=== PATIENT | male | born 1955 | race African-American/Black ===

== ENCOUNTER 2019-02-12 11:36 | Inpatient (IN) | payer OTHER ==
[2019-02-12 13:05] VITALS: BMI 32.1
--- NOTE | 2019-02-12 13:43 | HP ---
CIWA Score - Admission Criteria OASAS Guidelines: Admission for Medically Managed Detox: Requires at least one of the followin. CIWA greater than 12 2. Seizures within the past 24 hours 3. Delirium tremens within the past 24 hours 4. Hallucinations within the past 24 hours 5. Acute intervention needed for co occurring medical disorder 6. Acute intervention needed for co occurring psychiatric disorder 7. Severe withdrawal that cannot be handled at a lower level of care (continued vomiting, continued diarrhea, abnormal vital signs) requiring intravenous medication and/or fluids 8. Admission ROS S - HPI Chief Complaint: i am here for rehab from heroin and alcohol Allergies/Adverse Reactions: Allergies Allergy/AdvReac Type Severity Reaction Status Date / Time allopurinol Allergy Verified 02/12/19 13:34 colchicine Allergy Verified 02/12/19 13:35 History of Present Illness: this 63 years old male with heroin and alcohol dependence,seeking rehab,last detox in [place] from 02/07/19 to 02/10/19 history of hypertension,type 2 dm,hepatitis c treated anxiety longest period of sobriety 22 years ambulation with cane for 1 week plan to go to rehab Exam Limitations: No Limitations - Ebola screening Have you traveled outside of the country in the last 21 days: No Have you had contact with anyone from an Ebola affected area: No Have you been sick,other than usual withdrawal symptoms: No Do you have a fever: No - Review of Systems Constitutional: No Symptoms Reported EENT: reports: No Symptoms Reported Respiratory: reports: No Symptoms reported Cardiac: reports: No Symptoms Reported GI: reports: No Symptoms Reported : reports: No Symptoms Reported Musculoskeletal: reports: No Symptoms Reported Integumentary: reports: No Symptoms Reported Neuro: reports: No Symptoms reported Endocrine: reports: No Symptoms Reported, Other (type 2 dm) Hematology: reports: No Symptoms Reported Psychiatric: reports: No Sypmtoms Reported, Judgement Intact, Mood/Affect Appropiate, Orientated x3, Anxious Other Systems: Reviewed and Negative Patient History - Patient Medical History Hx Anemia: No Hx Asthma: No Hx Chronic Obstructive Pulmonary Disease (COPD): No Hx Cancer: No Hx Cardiac Disorders: No Hx Congestive Heart Failure: No Hx Hypertension: Yes (on med) Hx Hypercholesterolemia: No Hx Pacemaker: No HX Cerebrovascular Accident: No Hx Seizures: No Hx Dementia: No Hx Diabetes: Yes (on diet control) Hx Gastrointestinal Disorders: No Hx Liver Disease: No Hx Genitourinary Disorders: No Hx Sexually Transmitted Disorders: No Hx Renal Disease (ESRD): No Hx Thyroid Disease: No Hx Human Immunodeficiency Virus (HIV): No (last 2013 negative) Hx Hepatitis C: Yes (treated) Hx Depression: No Hx Suicide Attempt: No Hx Bipolar Disorder: No Hx Schizophrenia: No Other Medical History: anxiety,ambulatory with cane,history of gout - Patient Surgical History Other Surgical History: 2014 history of back surgery - PPD History Previous Implant?: Yes Documented Results: Negative w/o proof Implanted On Prior [facility] Admission?: No PPD to be Administered?: Yes - Smoking Cessation Smoking history: Never smoked - Substance & Tx. History Hx Alcohol Use: Yes Hx Substance Use: Yes Substance Use Type: Alcohol, Heroin Hx Substance Use Treatment: Yes ([place] from 02/07/19 to 02/10/19) - Substances Abused Alcohol Route: Oral Frequency: Daily Amount used: 1 beer Age of first use: 13 Date of Last Use: 02/12/19 Heroin Route: Inhalation Frequency: 1-2 times per week Amount used: 4 to 5 bags Date of Last Use: 02/12/19 Family Disease History - Family Disease History Family Disease History: Other: Father (alcohol,), Mother (alcohol, ), Brother (alcohol) Admission Physical Exam [facility] - Vital Signs Vital Signs: Vital Signs - 24 hr 02/12/19 13:00 Temperature 97.9 F Pulse Rate 113 H Respiratory 20 Rate Blood Pressure 114/66 - Physical General Appearance: Yes: Within Normal Limits HEENTM: Yes: Normal ENT Inspection, CHLOE, Pharynx Normal Respiratory: Yes: Lungs Clear, Normal Breath Sounds, No Respiratory Distress Neck: Yes: Within Normal Limits, Supple, Trachea in good position Breast: Yes: Within Normal Limits Cardiology: Yes: Within Normal Limits, Regular Rhythm, Regular Rate, S1, S2 Abdominal: Yes: Within Normal Limits, Normal Bowel Sounds, Non Tender, Flat, Soft Genitourinary: Yes: Within Normal Limits Back: Yes: Within Normal Limits, Surgical Scar (s/p backsurgery) Musculoskeletal: Yes: Back pain, Muscle Pain Extremities: Yes: Within Normal Limits, Other (arthritis gout) Neurological: Yes: Within Normal Limits, foot specialist II-XII NML intact, Fully Oriented, Alert, Motor Strength 5/5 Integumentary: Yes: Within Normal Limits Lymphatic: Yes: Within Normal Limits - Diagnostic (1) Heroin dependence Current Visit: Yes Status: Acute (2) Alcohol dependence Current Visit: Yes Status: Acute (3) Essential hypertension Current Visit: Yes Status: Acute (4) DM2 (diabetes mellitus, type 2) Current Visit: Yes Status: Acute (5) Anxiety Current Visit: Yes Status: Acute (6) Gout Current Visit: Yes Status: Acute (7) Use of cane as ambulatory aid Current Visit: Yes Status: Acute Cleared for Admission [facility] - Detox or Rehab Claeared for Rehab Admission: Yes [facility] Breath Alcohol Content Breath Alcohol Content: 0 Urine Drug Screen - Results Drug Screen Negative: No Urine Drug Screen Results: OPI-Opiates, BZO-Benzodiazepines, MTD-Methadone, FEN- Fentanyl Inpatient Rehab Admission - Rehab Decision to Admit Inpatient rehab admission?: Yes - Initial Determination Are CD services needed?: Yes Free of communicable disease: Yes Not in need of hospitalization: Yes - Rehab Admission Criteria Previous failed treatment: Yes Poor recovery environment: Yes Comorbidities: Yes Lacks judgement: No Patient is meeting Inpatient Rehab admission criteria:: Yes
[2019-02-12] MEDS ORDERED: MAG HYDROX/AL HYDROX/SIMETH 30 ML UNIT-DOSE CUP PO PRN (14:00)
[2019-02-12] MEDS ORDERED: ACETAMINOPHEN 325 MG TABLET (FP) PO PRN (14:00)
[2019-02-12] MEDS ORDERED: P-EPHED 60MG/TRIPROLIDI 2.5MG TABLET PO PRN (14:00)
[2019-02-12] MEDS ORDERED: MAGNESIUM HYDROX 2400MG/30ML ORAL SUSPENSION 30 ML CUP PO PRN (14:00)
[2019-02-12] MEDS ORDERED: MENTHOL/PHENOL 1 EACH UD MM PRN (14:00)
[2019-02-12] MEDS ORDERED: guaiFENesin 200 MG/10 ML 10 ML UNIT-DOSE CUPS PO PRN (14:00)
[2019-02-12] MEDS ORDERED: MAGNESIUM CITRATE 300 ML BOTTLE PO PRN (14:00)
[2019-02-12] MEDS ORDERED: IBUPROFEN 400 MG TABLET (FP) PO PRN (14:00)
[2019-02-12] MEDS ORDERED: LOPERAMIDE HCL 2 MG CAPSULE PO PRN (14:00)
[2019-02-12] MEDS ORDERED: hydrOXYzine PAMOATE 50 MG CAPSULE (FP) PO PRN (14:00)
[2019-02-12] MEDS ORDERED: CYCLOBENZAPRINE HCL 5 MG TABLET PO PRN (14:11)
[2019-02-12] MEDS: THIAMINE HCL 100 MG TABLET (FP) PO SCH (21:55)
[2019-02-12] MEDS: hydrALAZINE HCL 50 MG TABLET (FP) PO SCH (21:56)
[2019-02-12] MEDS ORDERED: MELATONIN 5 MG TABLETS PO PRN (22:00)
[2019-02-12] MEDS: AMMONIUM LACTATE 12% LOTION 225 GM BOTTLE TP SCH (22:10)
[2019-02-12 22:54] LABS: HEMATOCRIT 33.5 % (35.4-49); HEMOGLOBIN 11.4 GM/dL (11.7-16.9); MCH 28.9 pg (25.7-33.7); MCHC 33.9 g/dl (32.0-35.9); MEAN CELL VOLUME 85.3 fl (80-96); MEAN PLT VOLUME 8.9 fl (7.5-11.1); PLATELET COUNT 220 K/MM3 (134-434); RBC 3.93 M/mm3 (4.00-5.60); WHITE BLOOD COUNT 5.3 K/mm3 (4.0-10.0)
[2019-02-12 23:08] LABS: ALBUMIN 3.1 g/dl (3.4-5.0); ALK PHOS 66 U/L (45-117); ANION GAP 4 MMOL/L (8-16); BILIRUBIN,TOTAL 0.2 mg/dL (0.2-1); BLOOD UREA NITROGEN 20 mg/dL (7-18); CALCIUM 8.3 mg/dL (8.5-10.1); CHLORIDE 110 mmol/L (98-107); CO2 28 mmol/L (21-32); CREATININE 1.9 mg/dL (0.55-1.3); GLUCOSE,RANDOM 110 mg/dL (74-106); POTASSIUM 4.3 mmol/L (3.5-5.1); SGOT/AST 54 U/L (15-37); SGPT/ALT 55 U/L (13-61); SODIUM 142 mmol/L (136-145); TOT PROT 6.5 g/dl (6.4-8.2); URIC ACID 9.1 mg/dL (2.6-7.2)
[2019-02-13 00:10] LABS: URINE APPEARANCE SLCLOUDY; URINE BILIRUBIN NEGATIVE (<2.0 mg/dL); URINE COLOR YELLOW; URINE GLUCOSE (UA) NEGATIVE (NEGATIVE); URINE KETONE NEGATIVE (NEGATIVE); URINE LEUK ESTERASE NEGATIVE (NEGATIVE); URINE NITRITE NEGATIVE (NEGATIVE); URINE PROTEIN 1+ (NEGATIVE); URINE UROBILINOGEN NEGATIVE mg/dL (0.2-1.0)
[2019-02-13 00:18] LABS: URINE MUCUS RARE
[2019-02-13] MEDS: hydrALAZINE HCL 50 MG TABLET (FP) PO SCH ×3 (06:24→21:10)
[2019-02-13 07:12] VITALS: BP 155/98; PULSE 93; TEMP 97.3
[2019-02-13] MEDS ORDERED: PRENATAL VITAMINS W/ FOLIC ACID TABLET (FP) PO SCH (10:00)
[2019-02-13] MEDS: AMMONIUM LACTATE 12% LOTION 225 GM BOTTLE TP SCH ×2 (10:44→21:10)
--- NOTE | 2019-02-13 10:45 | EKG ---
Test Reason : Blood Pressure : / mmHG Vent. Rate : 105 BPM Atrial Rate : 105 BPM P-R Int : 210 ms QRS Dur : 072 ms QT Int : 336 ms P-R-T Axes : 047 -09 025 degrees QTc Int : 444 ms SINUS TACHYCARDIA WITH 1ST DEGREE A-V BLOCK MINIMAL VOLTAGE CRITERIA FOR LVH, MAY BE NORMAL VARIANT BORDERLINE ECG NO PREVIOUS ECGS AVAILABLE Confirmed by Giovanni Jimenez MD ([id number]) on 02/13/2019 10:44:59 AM Referred By: Confirmed By:Giovanni Jimenez MD
[2019-02-13] MEDS ORDERED: PNEUMOC 13-VAL CONJ-DIP CRM/PF 0.5 ML DISP.SYRIN IM ONE (12:00)
[2019-02-13] MEDS: THIAMINE HCL 100 MG TABLET (FP) PO SCH (21:10)
[2019-02-13] MEDS ORDERED: cloNIDine HCL 0.1 MG TABLET PO ONE (23:26)
--- NOTE | 2019-02-14 01:45 | PN ---
[facility] Progress Note Note: Spoke to patient who insisted on leaving AMA despite encouragement to stay at 2330 hrs. Alert and oriented. States brother lives just a few blocks away from [facility]. Denies withdrawal symptoms and would not give a reason for leaving. Patient w/ uncontrolled HTN (last B/P: 160/101) and risks of heart attack and stroke discussed. States he's fine and refused further treatment. Laboratory Last Values WBC 5.3 K/mm3 (4.0-10.0) 02/12/19 15:00 RBC 3.93 M/mm3 (4.00-5.60) L 02/12/19 15:00 Hgb 11.4 GM/dL (11.7-16.9) L 02/12/19 15:00 Hct 33.5 % (35.4-49) L 02/12/19 15:00 MCV 85.3 fl (80-96) 02/12/19 15:00 MCH 28.9 pg (25.7-33.7) 02/12/19 15:00 MCHC 33.9 g/dl (32.0-35.9) 02/12/19 15:00 RDW 15.0 % (11.9-15.9) 02/12/19 15:00 Plt Count 220 K/MM3 (134-434) 02/12/19 15:00 MPV 8.9 fl (7.5-11.1) 02/12/19 15:00 Sodium 142 mmol/L (136-145) 02/12/19 15:00 Potassium 4.3 mmol/L (3.5-5.1) 02/12/19 15:00 Chloride 110 mmol/L (98-107) H 02/12/19 15:00 Carbon Dioxide 28 mmol/L (21-32) 02/12/19 15:00 Anion Gap 4 MMOL/L (8-16) L 02/12/19 15:00 BUN 20 mg/dL (7-18) H 02/12/19 15:00 Creatinine 1.9 mg/dL (0.55-1.3) H 02/12/19 15:00 Creat Clearance w eGFR 35.76 (>60) 02/12/19 15:00 POC Glucometer 108 UNITS (80-120) 02/13/19 06:27 Random Glucose 110 mg/dL (74-106) H 02/12/19 15:00 Uric Acid 9.1 mg/dL (2.6-7.2) H 02/12/19 15:00 Calcium 8.3 mg/dL (8.5-10.1) L 02/12/19 15:00 Total Bilirubin 0.2 mg/dL (0.2-1) 02/12/19 15:00 AST 54 U/L (15-37) H 02/12/19 15:00 ALT 55 U/L (13-61) 02/12/19 15:00 Alkaline Phosphatase 66 U/L (45-117) 02/12/19 15:00 Total Protein 6.5 g/dl (6.4-8.2) 02/12/19 15:00 Albumin 3.1 g/dl (3.4-5.0) L 02/12/19 15:00 Urine Color Yellow 02/12/19 22:00 Urine Appearance Slcloudy 02/12/19 22:00 Urine pH 5.0 (5.0-8.0) 02/12/19 22:00 Ur Specific [place] 1.018 (1.010-1.035) 02/12/19 22:00 Urine Protein 1+ (NEGATIVE) H 02/12/19 22:00 Urine Glucose (UA) Negative (NEGATIVE) 02/12/19 22:00 Urine Ketones Negative (NEGATIVE) 02/12/19 22:00 Urine Blood 1+ (NEGATIVE) H 02/12/19 22:00 Urine Nitrite Negative (NEGATIVE) 02/12/19 22:00 Urine Bilirubin Negative (<2.0 mg/dL) 02/12/19 22:00 Urine Urobilinogen Negative mg/dL (0.2-1.0) 02/12/19 22:00 Ur Leukocyte Esterase Negative (NEGATIVE) 02/12/19 22:00 Urine WBC (Auto) 2 /hpf (3-5) 02/12/19 22:00 Urine RBC (Auto) <1 /hpf (0-3) 02/12/19 22:00 Urine Mucus Rare 02/12/19 22:00 RPR Titer Nonreactive (NONREACTIVE) 02/12/19 15:00 HIV 1&2 Antibody Screen Negative 02/12/19 15:00 HIV P24 Antigen Negative 02/12/19 15:00 Labs reviewed. Patient w/ a history of opioid use disorder. Risks of relapse and overdose discussed. Patient states he'll "be fine" but does agree to have a Narcan kit sent to his home pharmacy. Patient provided name of pharmacy. States nothing else needed.
== END 2019-02-13 11:45 | disposition left against medical advice (07) | DRG 894 ==
LOC: YASAS 11:36 → Y3W 14:18
PROVIDERS: ADMIT Neuromusculoskeletal Medicine & OMM; ATTEND Neuromusculoskeletal Medicine & OMM
PROC: HZ42ZZZ Group Counseling for Substance Abuse Treatment, Cognitive-Behavioral (ICD-10-PCS; principal; 2019-02-12)
DX: F11.20 Opioid dependence, uncomplicated (principal); F10.20 Alcohol dependence, uncomplicated; F41.9 Anxiety disorder, unspecified; I10 Essential (primary) hypertension; E11.9 Type 2 diabetes mellitus without complications; M10.9 Gout, unspecified; R26.89 Other abnormalities of gait and mobility; Z86.19 Personal history of other infectious and parasitic diseases
CPT/HCPCS: 36415; 80053; 81003; 81015; 82962; 84550; 85027; 86593; 87389; 90670; 93005; 93010

== ENCOUNTER 2019-03-02 19:38 | Inpatient (IN) | payer OTHER ==
[2019-03-02 20:25] VITALS: BMI 33.2
--- NOTE | 2019-03-02 20:38 | HP ---
COWS - Scale Resting Pulse: 1= MS 81-100 Sweatin=Flushed/Facial Moisture Restless Observation: 3= Extraneous Movement Pupil Size: 2= Moderately Dilated (Pupils = 4 mm) Bone or Joint Aches: 0= None Runny Nose/ Eye Tearin= Runny Nose/Eyes GI Upset > 30mins: 5=Frequent Vomit/Diarrhea Tremor Observation: 2= Slight Tremor Visible Yawning Observation: 0= None Anxiety or Irritability: 2=Irritable/Anxious Goose Flesh Skin: 0=Smooth Skin COWS Score: 19 CIWA Score Nausea/Vomitin-Cont. Nausea/Vomiting Muscle Tremors: 3 Anxiety: 4-Mod. Anxious/Guarded Agitation: 4-Moderately Restless Paroxysmal Sweats: 2 Orientation: 0-Oriented Tacttile Disturbances: 0-None Auditory Disturbances: 0-None Visual Disturbances: 0-None Headache: 0-None Present CIWA-Ar Total Score: 20 - Admission Criteria OAS Guidelines: Admission for Medically Managed Detox: Requires at least one of the followin. CIWA greater than 12 2. Seizures within the past 24 hours 3. Delirium tremens within the past 24 hours 4. Hallucinations within the past 24 hours 5. Acute intervention needed for co occurring medical disorder 6. Acute intervention needed for co occurring psychiatric disorder 7. Severe withdrawal that cannot be handled at a lower level of care (continued vomiting, continued diarrhea, abnormal vital signs) requiring intravenous medication and/or fluids 8. Patient presents the following: CIWA greater than 12 Admission Criteria Met: Admission criteria met Admission ROS [facility] Chief Complaint: Having alcohol and heroin withdrawal. Allergies/Adverse Reactions: Allergies Allergy/AdvReac Type Severity Reaction Status Date / Time allopurinol Allergy Verified 03/02/19 20:04 colchicine Allergy Verified 03/02/19 20:04 History of Present Illness: Heroin use began at age 13. Current usage of 4-5 bags since 10/2018 Alcohol use began at age 13. Current usage of 2 pints since 11/2018 States was taking prescribed opiates for back pain but stopped in December 2018, Rehab admission x 2 days, left AMA in 01/2019. States relapsed same day left facility. Longest period of sobriety 22 years Denies seizures/blackouts, Hx overdose in October/2018. Narcan kit at home. PMHx: HTN, DM (controlled w/ diet), MHXx: Anxiety and Depression. Denies thoughts of harming self or others - intermittent compliance w/ MH medications. Last saw private Provider 3 weeks ago, Patient Name: Augusto Johnson Date: 1955 Address: [address] [place] [address] Sex: Male Rx Written Rx Dispensed Drug Quantity Days Supply Prescriber Name 01/04/2019 01/04/2019 acetaminophen-cod #4 tablet 60 30 Ferdinand Daniels M D 12/07/2018 12/11/2018 acetaminophen-cod #4 tablet 46 23 Ferdinand Daniels M D 12/07/2018 12/07/2018 acetaminophen-cod #4 tablet 14 7 Ferdinand Daniels M D 11/09/2018 11/09/2018 acetaminophen-cod #4 tablet 60 30 Abayeva, Terrie 10/11/2018 10/11/2018 acetaminophen-cod #4 tablet 60 30 Abayeva, Terrie 10/05/2018 10/05/2018 acetaminophen-cod #3 tablet 21 7 Bita Whitley 09/13/2018 09/13/2018 oxycodone hcl 5 mg tablet 60 30 Ferdinand Daniels M D 08/17/2018 08/17/2018 oxycodone hcl 5 mg tablet 60 30 Ferdinand Daniels M D 08/08/2018 08/09/2018 oxaydo 5 mg tablet 15 5 Eula Giron) 07/29/2018 07/29/2018 oxaydo 5 mg tablet 30 10 Eula Giron) 07/17/2018 07/23/2018 tramadol hcl 50 mg tablet 14 7 Mateo Cook ([place]) 07/17/2018 07/17/2018 tramadol hcl 50 mg tablet 14 7 Mateo Cook (PA) 06/19/2018 07/09/2018 acetaminophen-cod #4 tablet 16 8 Ferdinand Daniels M D 06/19/2018 06/25/2018 acetaminophen-cod #4 tablet 30 15 Ferdinand Daniels M D 06/19/2018 06/19/2018 acetaminophen-cod #4 tablet 14 7 Ferdinand Daniels M D 05/18/2018 05/18/2018 acetaminophen-cod #4 tablet 60 30 Mateo Cook (GHADA) 04/27/2018 04/27/2018 oxaydo 5 mg tablet 40 13 Eula Giron) 04/21/2018 04/21/2018 acetaminophen-cod #3 tablet 60 30 Ferdinand Daniels M D 03/21/2018 03/21/2018 oxycodone-acetaminophen 10-325 mg tablet 45 23 Ferdinand Daniels M D 03/14/2018 03/14/2018 acetaminophen-cod #3 tablet 30 7 Eula Giron) Exam Limitations: No Limitations - Ebola screening Have you traveled outside of the country in the last 21 days: No (N) Have you had contact with anyone from an Ebola affected area: No Have you been sick,other than usual withdrawal symptoms: No Do you have a fever: No - Review of Systems Constitutional: Chills, Diaphoresis, Changes in sleep (Difficulty staying asleep -) EENT: reports: Blurred Vision, Nose Congestion Respiratory: reports: No Symptoms reported Cardiac: reports: No Symptoms Reported GI: reports: Diarrhea, Nausea, Vomiting : reports: No Symptoms Reported Musculoskeletal: reports: No Symptoms Reported Integumentary: reports: No Symptoms Reported Neuro: reports: No Symptoms reported Endocrine: reports: No Symptoms Reported Hematology: reports: No Symptoms Reported Psychiatric: reports: Orientated x3, Agitated, Anxious, Depressed (Denies thoughts of harming self or others) Patient History - Patient Medical History Hx Anemia: No Hx Asthma: No Hx Chronic Obstructive Pulmonary Disease (COPD): No Hx Cancer: No Hx Cardiac Disorders: No Hx Congestive Heart Failure: No Hx Hypertension: Yes (on med) Hx Hypercholesterolemia: No Hx Pacemaker: No HX Cerebrovascular Accident: No Hx Seizures: No Hx Dementia: No Hx Diabetes: Yes (on diet control) Hx Gastrointestinal Disorders: No Hx Liver Disease: No Hx Genitourinary Disorders: No Hx Sexually Transmitted Disorders: No Hx Renal Disease (ESRD): No Hx Thyroid Disease: No Hx Human Immunodeficiency Virus (HIV): No (last 2013 negative) Hx Hepatitis C: Yes (treated) Hx Depression: No Hx Suicide Attempt: No Hx Bipolar Disorder: No Hx Schizophrenia: No - Patient Surgical History Other Surgical History: 2014 history of back surgery - PPD History Date: 02/14/19 - Smoking Cessation Smoking history: Never smoked Have you smoked in the past 12 months: No Hx Chewing Tobacco Use: No - Substance & Tx. History Hx Alcohol Use: Yes Hx Substance Use: Yes Substance Use Type: Alcohol, Heroin Hx Substance Use Treatment: Yes (rehab, 1 detox) - Substances abused Alcohol Substance route: Smoking Frequency: Daily Amount used: 2 pints Age of first use: 13 Date of last use: 03/02/19 Heroin Substance route: Inhalation Frequency: Daily Amount used: 45 dollars Age of first use: 13 Date of last use: 03/01/19 Family Disease History - Family Disease History Family Disease History: Other: Father (alcohol,), Mother (alcohol, ), Brother (alcohol) Admission Physical Exam [facility] - Vital Signs Vital Signs: Vital Signs - 24 hr 03/02/19 03/02/19 20:02 20:24 Temperature 99.2 F 99.2 F Pulse Rate 86 86 Respiratory 16 16 Rate Blood Pressure 161/98 161/98 - Physical General Appearance: Yes: Nourished, Appropriately Dressed, Moderate Distress, Tremorous (Mild tremors), Irritable, Sweating (Increased facial moisture), Anxious HEENTM: Yes: EOMI, Hearing grossly Normal, CHLOE (Pupils = 4 mm), Pharynx Normal , Nasal Congestion, Rhinorrhea Respiratory: Yes: Lungs Clear, Normal Breath Sounds, No Respiratory Distress Neck: Yes: No masses,lesions,Nodules, Supple Breast: Yes: Breast Exam Deferred Cardiology: Yes: Regular Rhythm, Regular Rate, S1, S2, Edema (BLE 1+ pitting edema toes to nelow knee) Abdominal: Yes: Non Tender, Soft, Increased Bowel Sounds, Protuberent ( Increased abdominal adiposity), Other (Actively vomiting) Genitourinary: Yes: Within Normal Limits Back: Yes: Normal Inspection Musculoskeletal: Yes: full range of Motion, Gait Steady Extremities: Yes: Normal Capillary Refill, Normal Range of Motion, Tremors ( Mild tremors of hands) Neurological: Yes: sales service manager II-XII NML intact, Fully Oriented, Alert, Motor Strength 5/5, Normal Mood/Affect Integumentary: Yes: Normal Color, Warm Lymphatic: Yes: Within Normal Limits - Diagnostic (1) Alcohol dependence with uncomplicated withdrawal Current Visit: Yes Status: Acute (2) Opioid dependence with withdrawal Current Visit: Yes Status: Acute (3) DM2 (diabetes mellitus, type 2) Current Visit: Yes Status: Chronic Qualifiers: Diabetes mellitus residential insulin use: without remote computer terminal operator use Diabetes mellitus complication status: without complication Qualified Code(s): E11.9 - Type 2 diabetes mellitus without complications (4) Essential hypertension Current Visit: Yes Status: Chronic (5) Edema extremities Current Visit: Yes Status: Chronic Cleared for Admission S - Detox or Rehab [facility] Level of Care: Medically Managed Detox Regimen/Protocol: Methadone/Librium Breathalyzer - Breathalyzer Breathalyzer: 0.047 Urine Drug Screen - Test Device Lot number: [id number] Expiration date: 10/27/20 - Control Is test valid?: Yes - Results Drug screen NEGATIVE: No Urine drug screen results: MOP-Opiates, BZO-Benzodiazepines Inpatient Rehab Admission - Rehab Decision to Admit Inpatient rehab admission?: No
[2019-03-02] MEDS ORDERED: chlordiazePOXIDE HCL 25 MG CAPSULE PO PRN (21:05)
[2019-03-02] MEDS ORDERED: MAG HYDROX/AL HYDROX/SIMETH 30 ML UNIT-DOSE CUP PO PRN (21:05)
[2019-03-02] MEDS ORDERED: NALOXONE HCL 0.4 MG/ML VIAL IVPUSH PRN (21:05)
[2019-03-02] MEDS ORDERED: IBUPROFEN 400 MG TABLET (FP) PO PRN (21:05)
[2019-03-02] MEDS ORDERED: P-EPHED 60MG/TRIPROLIDI 2.5MG TABLET PO PRN (21:05)
[2019-03-02] MEDS ORDERED: MAGNESIUM CITRATE 300 ML BOTTLE PO PRN (21:05)
[2019-03-02] MEDS ORDERED: METHOCARBAMOL 500 MG TABLET PO PRN (21:05)
[2019-03-02] MEDS ORDERED: MENTHOL/PHENOL 1 EACH UD MM PRN (21:05)
[2019-03-02] MEDS ORDERED: chlordiazePOXIDE HCL 25 MG CAPSULE PO ONE (21:05)
[2019-03-02] MEDS ORDERED: MAGNESIUM HYDROX 2400MG/30ML ORAL SUSPENSION 30 ML CUP PO PRN (21:05)
[2019-03-02] MEDS ORDERED: BISMUTH SUBSALICYLATE 524 MG/30 ML UD PO PRN (21:05)
[2019-03-02] MEDS ORDERED: ACETAMINOPHEN 325 MG TABLET (FP) PO PRN ×2 (21:05)
[2019-03-02] MEDS ORDERED: TRIMETHOBENZAMIDE HCL 200MG/2ML INJ IM PRN (21:09)
[2019-03-02] MEDS: chlordiazePOXIDE HCL 25 MG CAPSULE PO SCH (22:21)
[2019-03-02] MEDS: INSULIN SLIDING SCALE (NOVOLOG) 1 VIAL SQ SCH (22:23)
[2019-03-02] MEDS: THIAMINE HCL 100 MG TABLET (FP) PO SCH (22:23)
[2019-03-02] MEDS ORDERED: METHADONE HCL 10 MG TABLET (FOR DETOX USE ONLY) PO ONE (23:00)
[2019-03-02 23:48] LABS: EPI CELLS 2.2 /HPF (0-5); PH,URINE 7.5 (5.0-8.0); URINE APPEARANCE CLEAR; URINE BACTERIA 9.5 /hpf (NEGATIVE); URINE BILIRUBIN NEGATIVE (NEGATIVE); URINE CASTS 5 /hpf (0-8); URINE COLOR YELLOW; URINE GLUCOSE (UA) NEGATIVE (NEGATIVE); URINE KETONE NEGATIVE (NEGATIVE); URINE LEUK ESTERASE NEGATIVE (NEGATIVE); URINE NITRITE NEGATIVE (NEGATIVE); URINE PROTEIN 1+ (NEGATIVE); URINE RBC 1 /hpf (0-4); URINE UROBILINOGEN 0.2 mg/dL (0.2-1.0); URINE WBC 7 /hpf (0-5)
[2019-03-03] MEDS: PROCHLORPERAZINE MALEATE 5 MG TABLET PO PRN (01:38)
[2019-03-03] MEDS ORDERED: TRIMETHOBENZAMIDE HCL 200MG/2ML INJ IM PRN (04:08)
[2019-03-03] MEDS: hydrOXYzine PAMOATE 50 MG CAPSULE (FP) PO PRN (05:02)
[2019-03-03] MEDS: cloNIDine HCL 0.1 MG TABLET PO PRN ×2 (05:02→22:21)
[2019-03-03] MEDS: chlordiazePOXIDE HCL 25 MG CAPSULE PO SCH ×4 (06:30→22:20)
[2019-03-03] MEDS: INSULIN SLIDING SCALE (NOVOLOG) 1 VIAL SQ SCH ×4 (07:53→22:00)
[2019-03-03] MEDS ORDERED: METHADONE HCL 10 MG TABLET (FOR DETOX USE ONLY) PO ONE (10:00)
[2019-03-03 10:10] LABS: HEMATOCRIT 36.3 % (35.4-49); HEMOGLOBIN 12.2 GM/dL (11.7-16.9); MCH 27.6 pg (25.7-33.7); MCHC 33.6 g/dl (32.0-35.9); MEAN CELL VOLUME 82.1 fl (80-96); MEAN PLT VOLUME 8.7 fl (7.5-11.1); PLATELET COUNT 356 K/MM3 (134-434); RBC 4.42 M/mm3 (4.00-5.60); WHITE BLOOD COUNT 10.8 K/mm3 (4.0-10.0)
[2019-03-03 10:19] LABS: ALBUMIN 3.3 g/dl (3.4-5.0); ALK PHOS 97 U/L (45-117); ANION GAP 9 MMOL/L (8-16); BILIRUBIN,TOTAL 0.8 mg/dL (0.2-1); BLOOD UREA NITROGEN 9 mg/dL (7-18); CHLORIDE 100 mmol/L (98-107); CO2 28 mmol/L (21-32); CREATININE 1.1 mg/dL (0.55-1.3); GLUCOSE,RANDOM 116 mg/dL (74-106); POTASSIUM 3.3 mmol/L (3.5-5.1); SGOT/AST 55 U/L (15-37); SGPT/ALT 43 U/L (13-61); SODIUM 137 mmol/L (136-145); TOT PROT 7.2 g/dl (6.4-8.2)
[2019-03-03] MEDS: PRENATAL VITAMINS W/ FOLIC ACID TABLET (FP) PO SCH (10:28)
--- NOTE | 2019-03-03 10:54 | CONSULT ---
[facility] Psychiatric Consult - Data Date of interview: 03/03/19 Admission source: [facility] Identifying data: Second admission to [facility] for this 63 y/o AA male self- referred for detoxification treatment (alcohol, heroin). Examined on . Patient is , a fatjer of one, domiciled, unemployed, currently retired and supported on his pension benefits. Substance Abuse History: Confirmed by the patient in this interview. Mr Johnson admits to using heroin via inhalation (4-5 bags daily) since age 13 and consuming " whatever alcoholic beverage that I can put my hands on " from age 13 onwards. Endorses a preference for Bacardi rum and vodka (1-2 pints daily). No history of smoking. Additional information detailed in current [facility] report as follows : Smoking history: Never smoked. Have you smoked in the past 12 months : No. Hx Chewing Tobacco Use: No. - Substance & Tx. History. Hx Alcohol Use: Yes. Hx Substance Use: Yes. Substance Use Type: Alcohol, Heroin. Hx Substance Use Treatment: Yes (rehab, 1 detox). - Substances abused. Alcohol. Substance route: Smoking. Frequency: Daily. Amount used: 2 pints. Age of first use: 13. Date of last use: 03/02/19. Heroin. Substance route : Inhalation. Frequency: Daily. Amount used: 45 dollars. Age of first use: 13. Date of last use: 03/01/19 Medical History: Remarkable for diabetes mellitus, hypertension, hepatitis C, chronic lumbar pain and a recent history of orthosurgery (back surgery in 2015). Psychiatric History: Patient denies history of psychiatric hospitalizations. Mr Johnson reports that he currently sees a private psychiatrist for medication management addressing anxiety. Prescribed buspar 15 mg/bid. Patient denies history of suicide attempts. Physical/Sexual Abuse/Trauma History: Patient denies history of abuse. Additional Comment: Urine drug screen results: MOP-Opiates, BZO- Benzodiazepines. Noted. Mental Status Exam - Mental Status Exam Alert and Oriented to: Time, Place, Person Cognitive Function: Good Patient Appearance: Well Groomed (obese) Mood: Nervous, Withdrawn Affect: Mood Congruent, Constricted Patient Behavior: Fatigued, Appropriate, Cooperative Speech Pattern: Clear Voice Loudness: Normal Thought Process: Intact, Goal Oriented Thought Disorder: Not Present Hallucinations: Denies Suicidal Ideation: Denies Homicidal Ideation: Denies Insight/Judgement: Poor Sleep: Poorly, Difficulty falling asleep Appetite: Fair Muscle strength/Tone: Normal Gait/Station: Normal Psychiatric Findings - Problem List ([place] 1, 2,3) (1) Alcohol dependence with uncomplicated withdrawal Current Visit: Yes Status: Acute (2) Opioid dependence with withdrawal Current Visit: Yes Status: Acute (3) Substance induced mood disorder Current Visit: Yes Status: Chronic (4) Anxiety disorder Current Visit: Yes Status: Chronic Comment: Patient sees a psychiatrist in the community. On buspar. (5) Insomnia Current Visit: Yes Status: Chronic - Initial Treatment Plan Initial Treatment Plan: Psychoeducation. Sleep hygiene. Support. Detoxification. Groups. Relapse prevention (MAT strategies) : discussed with the patient. AA/NA meetings. Patient is not receptive to the suggested recommendation of rehabilitation. " I prefer to keep my affiliation with NA meetings ". Insomnia is addressed with melatonin (patient declines trazoodone, seroquel or other traditional hypnotic medications) with patient's verbal informed consent. Observation.
[2019-03-03] MEDS ORDERED: hydrALAZINE HCL 25 MG TABLET (FP) PO ONE (14:46)
--- NOTE | 2019-03-03 14:55 | PN ---
[facility] CIWA - CIWA Score Nausea/Vomitin-No Nausea/No Vomiting Muscle Tremors: 3 Anxiety: 3 Agitation: 0-Normal Activity Paroxysmal Sweats: 2 Orientation: 0-Oriented Tacttile Disturbances: 3-Moderate Itch/Numb/Burn Auditory Disturbances: 0-None Visual Disturbances: 3-Moderate Sensitivity Headache: 0-None Present CIWA-Ar Total Score: 14 BHS COWS - Scale Resting Pulse: 1= [place] 81-100 Sweatin= Chills/Flushing Restless Observation: 0= Sits Still Pupil Size: 0= Normal to Room Light Bone or Joint Aches: 2= Severe Diffuse Aches Runny Nose/ Eye Tearin= None GI Upset > 30mins: 0= None Tremor Observation of Outstretched Hands: 2= Slight Tremor Visible Yawning Observation: 2= >3x During Session Anxiety or Irritability: 2=Irritable/Anxious Goose Flesh Skin: 3=Piloerection COWS Score: 13 S Progress Note (SOAP) Subjective: Tremors, Fatigue, Body Aches, Anxious. Objective: PATIENT A & O X 3. IN NO ACUTE DISTRESS. 03/03/19 14:51 Vital Signs Temperature 99.6 F 03/03/19 09:21 Pulse Rate 84 03/03/19 09:21 Respiratory Rate 16 03/03/19 09:21 Blood Pressure 153/89 03/03/19 09:21 O2 Sat by Pulse Oximetry (%) Laboratory Tests 03/02/19 03/02/19 03/03/19 21:37 21:37 06:30 WBC RBC Hgb Hct MCV MCH MCHC RDW Plt Count MPV Sodium Potassium Chloride Carbon Dioxide Anion Gap BUN Creatinine Creat Clearance w eGFR POC Glucometer 115 137 Random Glucose Calcium Total Bilirubin AST ALT Alkaline Phosphatase Total Protein Albumin Urine Color Yellow Urine Appearance Clear Urine pH 7.5 D Ur Specific [place] 1.020 Urine Protein 1+ H Urine Glucose (UA) Negative Urine Ketones Negative Urine Blood Trace Urine Nitrite Negative Urine Bilirubin Negative Urine Urobilinogen 0.2 Ur Leukocyte Esterase Negative Urine WBC (Auto) 7 Urine RBC (Auto) 1 Urine Casts (Auto) 5 U Epithel Cells (Auto) 2.2 Urine Bacteria (Auto) 9.5 03/03/19 03/03/19 03/03/19 07:45 07:45 11:25 WBC 10.8 H RBC 4.42 Hgb 12.2 Hct 36.3 MCV 82.1 MCH 27.6 MCHC 33.6 RDW 15.0 Plt Count 356 D MPV 8.7 Sodium 137 Potassium 3.3 L Chloride 100 Carbon Dioxide 28 Anion Gap 9 BUN 9 Creatinine 1.1 Creat Clearance w eGFR 67.18 POC Glucometer 118 Random Glucose 116 H Calcium 9.0 Total Bilirubin 0.8 AST 55 H ALT 43 Alkaline Phosphatase 97 Total Protein 7.2 Albumin 3.3 L Urine Color Urine Appearance Urine pH Ur Specific [place] Urine Protein Urine Glucose (UA) Urine Ketones Urine Blood Urine Nitrite Urine Bilirubin Urine Urobilinogen Ur Leukocyte Esterase Urine WBC (Auto) Urine RBC (Auto) Urine Casts (Auto) U Epithel Cells (Auto) Urine Bacteria (Auto) LABS NOTED. Assessment: 03/03/19 14:51 WITHDRAWAL SYMPTOMS. HYPOKALEMIA. HYPERTENSION. LEUKOCYTOSIS. 03/03/19 14:52 Plan: CONTINUE DETOX. PATIENT REPORTS HISTORY OF HYDRALAZINE FOR TREATMENT OF HTN ([facility]START AT 25 MG PO BID. K-DUR, 20 MEQ PO BID FOR HYPOKALEMIA. RE-CHECK K LEVEL ON 03/05/2019. REPEAT CBC TOMORROW AM FOR ELEVATED ADMISSION WBC LEVEL. PATIENT AFEBRILE AT THIS TIME.
[2019-03-03] MEDS: POTASSIUM CHLORIDE TABS 20 MEQ TABLET.ER (FP) PO SCH (17:50)
[2019-03-03] MEDS: THIAMINE HCL 100 MG TABLET (FP) PO SCH (22:20)
[2019-03-03] MEDS: hydrALAZINE HCL 25 MG TABLET (FP) PO SCH (22:20)
[2019-03-03] MEDS: MELATONIN 5 MG TABLETS PO PRN (22:22)
[2019-03-04] MEDS: PROCHLORPERAZINE MALEATE 5 MG TABLET PO PRN (06:23)
[2019-03-04] MEDS: cloNIDine HCL 0.1 MG TABLET PO PRN (06:23)
[2019-03-04] MEDS: chlordiazePOXIDE HCL 25 MG CAPSULE PO SCH ×3 (06:25→17:21)
[2019-03-04] MEDS: INSULIN SLIDING SCALE (NOVOLOG) 1 VIAL SQ SCH ×4 (06:36→21:48)
[2019-03-04] MEDS ORDERED: METHADONE HCL 10 MG TABLET (FOR DETOX USE ONLY) PO ONE (10:00)
[2019-03-04 10:02] LABS: BASO % 1.1 % (0-2.0); EOS % 1.8 % (0-4.5); HEMATOCRIT 37.6 % (35.4-49); HEMOGLOBIN 12.9 GM/dL (11.7-16.9); LYMPH % 21.6 % (8-40); MCH 28.2 pg (25.7-33.7); MCHC 34.3 g/dl (32.0-35.9); MEAN CELL VOLUME 82.2 fl (80-96); MEAN PLT VOLUME 8.7 fl (7.5-11.1); MONO % 9.8 % (3.8-10.2); NEUT % 65.7 % (42.8-82.8); PLATELET COUNT 300 K/MM3 (134-434); RBC 4.57 M/mm3 (4.00-5.60); RDW 14.7 % (11.9-15.9)
[2019-03-04] MEDS: PRENATAL VITAMINS W/ FOLIC ACID TABLET (FP) PO SCH (10:23)
[2019-03-04] MEDS: POTASSIUM CHLORIDE TABS 20 MEQ TABLET.ER (FP) PO SCH ×2 (10:23→17:21)
[2019-03-04] MEDS: hydrALAZINE HCL 25 MG TABLET (FP) PO SCH ×2 (10:23→22:10)
--- NOTE | 2019-03-04 13:52 | PN ---
[facility] CIWA - CIWA Score Nausea/Vomitin-Mild Nausea/No Vomiting Muscle Tremors: 3 Anxiety: 1-Mildly Anxious Agitation: 2 Paroxysmal Sweats: 1-Minimal Palms Moist Orientation: 0-Oriented Tacttile Disturbances: 0-None Auditory Disturbances: 0-None Visual Disturbances: 0-None Headache: 2-Mild CIWA-Ar Total Score: 10 BHS COWS - Scale Resting Pulse: 0= NE 80 or Below Sweatin= Chills/Flushing Restless Observation: 0= Sits Still Pupil Size: 0= Normal to Room Light Bone or Joint Aches: 1= Mild Discomfort Runny Nose/ Eye Tearin= Nasal Congestion GI Upset > 30mins: 1= Stomach Cramp Tremor Observation of Outstretched Hands: 1= Tremor [place], Not Seen Yawning Observation: 2= >3x During Session Anxiety or Irritability: 2=Irritable/Anxious Goose Flesh Skin: 0=Smooth Skin COWS Score: 9 BHS Progress Note (SOAP) Subjective: feeling ok today mild headache report long history of hypertension "up and down " discuss risks of uncontrolled bp Objective: 03/04/19 13:50 Vital Signs Temperature 96.4 F L 03/04/19 09:48 Pulse Rate 80 03/04/19 09:48 Respiratory Rate 18 03/04/19 09:48 Blood Pressure 168/107 H 03/04/19 09:48 O2 Sat by Pulse Oximetry (%) Laboratory Last Values WBC 7.0 K/mm3 (4.0-10.0) 03/04/19 07:50 RBC 4.57 M/mm3 (4.00-5.60) 03/04/19 07:50 Hgb 12.9 GM/dL (11.7-16.9) 03/04/19 07:50 Hct 37.6 % (35.4-49) 03/04/19 07:50 MCV 82.2 fl (80-96) 03/04/19 07:50 MCH 28.2 pg (25.7-33.7) 03/04/19 07:50 MCHC 34.3 g/dl (32.0-35.9) 03/04/19 07:50 RDW 14.7 % (11.9-15.9) 03/04/19 07:50 Plt Count 300 K/MM3 (134-434) 03/04/19 07:50 MPV 8.7 fl (7.5-11.1) 03/04/19 07:50 Absolute Neuts (auto) 4.6 K/mm3 (1.5-8.0) 03/04/19 07:50 Neutrophils % 65.7 % (42.8-82.8) 03/04/19 07:50 Lymphocytes % 21.6 % (8-40) 03/04/19 07:50 Monocytes % 9.8 % (3.8-10.2) 03/04/19 07:50 Eosinophils % 1.8 % (0-4.5) 03/04/19 07:50 Basophils % 1.1 % (0-2.0) 03/04/19 07:50 Nucleated RBC % 0 % (0-0) 03/04/19 07:50 Sodium 137 mmol/L (136-145) 03/03/19 07:45 Potassium 3.3 mmol/L (3.5-5.1) L 03/03/19 07:45 Chloride 100 mmol/L (98-107) 03/03/19 07:45 Carbon Dioxide 28 mmol/L (21-32) 03/03/19 07:45 Anion Gap 9 MMOL/L (8-16) 03/03/19 07:45 BUN 9 mg/dL (7-18) 03/03/19 07:45 Creatinine 1.1 mg/dL (0.55-1.3) 03/03/19 07:45 Creat Clearance w eGFR 67.18 (>60) 03/03/19 07:45 POC Glucometer 82 UNITS (80-120) 03/04/19 12:01 Random Glucose 116 mg/dL (74-106) H 03/03/19 07:45 Calcium 9.0 mg/dL (8.5-10.1) 03/03/19 07:45 Total Bilirubin 0.8 mg/dL (0.2-1) 03/03/19 07:45 AST 55 U/L (15-37) H 03/03/19 07:45 ALT 43 U/L (13-61) 03/03/19 07:45 Alkaline Phosphatase 97 U/L (45-117) 03/03/19 07:45 Total Protein 7.2 g/dl (6.4-8.2) 03/03/19 07:45 Albumin 3.3 g/dl (3.4-5.0) L 03/03/19 07:45 Urine Color Yellow 03/02/19 21:37 Urine Appearance Clear 03/02/19 21:37 Urine pH 7.5 (5.0-8.0) D 03/02/19 21:37 Ur Specific [place] 1.020 (1.010-1.035) 03/02/19 21:37 Urine Protein 1+ (NEGATIVE) H 03/02/19 21:37 Urine Glucose (UA) Negative (NEGATIVE) 03/02/19 21:37 Urine Ketones Negative (NEGATIVE) 03/02/19 21:37 Urine Blood Trace (NEGATIVE) 03/02/19 21:37 Urine Nitrite Negative (NEGATIVE) 03/02/19 21:37 Urine Bilirubin Negative (NEGATIVE) 03/02/19 21:37 Urine Urobilinogen 0.2 mg/dL (0.2-1.0) 03/02/19 21:37 Ur Leukocyte Esterase Negative (NEGATIVE) 03/02/19 21:37 Urine WBC (Auto) 7 /hpf (0-5) 03/02/19 21:37 Urine RBC (Auto) 1 /hpf (0-4) 03/02/19 21:37 Urine Casts (Auto) 5 /hpf (0-8) 03/02/19 21:37 U Epithel Cells (Auto) 2.2 /HPF (0-5) 03/02/19 21:37 Urine Bacteria (Auto) 9.5 /hpf (NEGATIVE) 03/02/19 21:37 lab noted continue K+ supplement repeat K+ 03/04/19 13:51 Assessment: 03/04/19 13:51 withdrawal sx 03/04/19 13:52 hypertension Plan: continue detox clonidin prn for hypertension
[2019-03-04] MEDS: chlordiazePOXIDE HCL 10 MG CAPSULE PO SCH (22:10)
[2019-03-04] MEDS: THIAMINE HCL 100 MG TABLET (FP) PO SCH (22:10)
[2019-03-04] MEDS: MELATONIN 5 MG TABLETS PO PRN (22:10)
[2019-03-04] MEDS ORDERED: chlordiazePOXIDE HCL 10 MG CAPSULE PO PRN (23:00)
[2019-03-05] MEDS: hydrOXYzine PAMOATE 50 MG CAPSULE (FP) PO PRN (02:44)
[2019-03-05] MEDS: chlordiazePOXIDE HCL 10 MG CAPSULE PO SCH ×3 (05:31→17:32)
[2019-03-05] MEDS: INSULIN SLIDING SCALE (NOVOLOG) 1 VIAL SQ SCH ×2 (06:38→10:39)
[2019-03-05] MEDS ORDERED: METHADONE HCL 10 MG TABLET (FOR DETOX USE ONLY) PO ONE (10:00)
[2019-03-05] MEDS: POTASSIUM CHLORIDE TABS 20 MEQ TABLET.ER (FP) PO SCH (10:14)
[2019-03-05] MEDS: hydrALAZINE HCL 25 MG TABLET (FP) PO SCH ×2 (10:14→22:08)
[2019-03-05] MEDS: PRENATAL VITAMINS W/ FOLIC ACID TABLET (FP) PO SCH (10:14)
--- NOTE | 2019-03-05 14:20 | PN ---
[facility] CIWA - CIWA Score Nausea/Vomitin-No Nausea/No Vomiting Muscle Tremors: 2 Anxiety: 1-Mildly Anxious Agitation: 2 Paroxysmal Sweats: 1-Minimal Palms Moist Orientation: 0-Oriented Tacttile Disturbances: 0-None Auditory Disturbances: 0-None Visual Disturbances: 0-None Headache: 0-None Present CIWA-Ar Total Score: 6 BHS Progress Note (SOAP) Subjective: patient has medication at home and agrees to follow up with primary care provider discuss medication assisted maintenance treatment program Objective: 03/05/19 14:40 Vital Signs Temperature 98.9 F 03/05/19 13:31 Pulse Rate 111 H 03/05/19 13:31 Respiratory Rate 20 03/05/19 13:31 Blood Pressure 151/93 03/05/19 13:31 O2 Sat by Pulse Oximetry (%) Laboratory Last Values WBC 7.0 K/mm3 (4.0-10.0) 03/04/19 07:50 RBC 4.57 M/mm3 (4.00-5.60) 03/04/19 07:50 Hgb 12.9 GM/dL (11.7-16.9) 03/04/19 07:50 Hct 37.6 % (35.4-49) 03/04/19 07:50 MCV 82.2 fl (80-96) 03/04/19 07:50 MCH 28.2 pg (25.7-33.7) 03/04/19 07:50 MCHC 34.3 g/dl (32.0-35.9) 03/04/19 07:50 RDW 14.7 % (11.9-15.9) 03/04/19 07:50 Plt Count 300 K/MM3 (134-434) 03/04/19 07:50 MPV 8.7 fl (7.5-11.1) 03/04/19 07:50 Absolute Neuts (auto) 4.6 K/mm3 (1.5-8.0) 03/04/19 07:50 Neutrophils % 65.7 % (42.8-82.8) 03/04/19 07:50 Lymphocytes % 21.6 % (8-40) 03/04/19 07:50 Monocytes % 9.8 % (3.8-10.2) 03/04/19 07:50 Eosinophils % 1.8 % (0-4.5) 03/04/19 07:50 Basophils % 1.1 % (0-2.0) 03/04/19 07:50 Nucleated RBC % 0 % (0-0) 03/04/19 07:50 Sodium 137 mmol/L (136-145) 03/03/19 07:45 Potassium 3.7 mmol/L (3.5-5.1) 03/05/19 07:00 Chloride 100 mmol/L (98-107) 03/03/19 07:45 Carbon Dioxide 28 mmol/L (21-32) 03/03/19 07:45 Anion Gap 9 MMOL/L (8-16) 03/03/19 07:45 BUN 9 mg/dL (7-18) 03/03/19 07:45 Creatinine 1.1 mg/dL (0.55-1.3) 03/03/19 07:45 Creat Clearance w eGFR 67.18 (>60) 03/03/19 07:45 POC Glucometer 110 UNITS (80-120) 03/05/19 05:30 Random Glucose 116 mg/dL (74-106) H 03/03/19 07:45 Calcium 9.0 mg/dL (8.5-10.1) 03/03/19 07:45 Total Bilirubin 0.8 mg/dL (0.2-1) 03/03/19 07:45 AST 55 U/L (15-37) H 03/03/19 07:45 ALT 43 U/L (13-61) 03/03/19 07:45 Alkaline Phosphatase 97 U/L (45-117) 03/03/19 07:45 Total Protein 7.2 g/dl (6.4-8.2) 03/03/19 07:45 Albumin 3.3 g/dl (3.4-5.0) L 03/03/19 07:45 Urine Color Yellow 03/02/19 21:37 Urine Appearance Clear 03/02/19 21:37 Urine pH 7.5 (5.0-8.0) D 03/02/19 21:37 Ur Specific [place] 1.020 (1.010-1.035) 03/02/19 21:37 Urine Protein 1+ (NEGATIVE) H 03/02/19 21:37 Urine Glucose (UA) Negative (NEGATIVE) 03/02/19 21:37 Urine Ketones Negative (NEGATIVE) 03/02/19 21:37 Urine Blood Trace (NEGATIVE) 03/02/19 21:37 Urine Nitrite Negative (NEGATIVE) 03/02/19 21:37 Urine Bilirubin Negative (NEGATIVE) 03/02/19 21:37 Urine Urobilinogen 0.2 mg/dL (0.2-1.0) 03/02/19 21:37 Ur Leukocyte Esterase Negative (NEGATIVE) 03/02/19 21:37 Urine WBC (Auto) 7 /hpf (0-5) 03/02/19 21:37 Urine RBC (Auto) 1 /hpf (0-4) 03/02/19 21:37 Urine Casts (Auto) 5 /hpf (0-8) 03/02/19 21:37 U Epithel Cells (Auto) 2.2 /HPF (0-5) 03/02/19 21:37 Urine Bacteria (Auto) 9.5 /hpf (NEGATIVE) 03/02/19 21:37 lab noted clonidine 0.1 mg po q6h prn for systolic above 140 03/05/19 14:42 Assessment: 03/05/19 14:43 withdrawal sx Plan: continue detox
[2019-03-05] MEDS ORDERED: cloNIDine HCL 0.1 MG TABLET PO PRN (14:41)
--- NOTE | 2019-03-05 16:33 | PN ---
S Progress Note Note: Vital Signs Temperature 98.9 F 03/05/19 13:31 Pulse Rate 111 H 03/05/19 13:31 Respiratory Rate 20 03/05/19 13:31 Blood Pressure 151/93 03/05/19 13:31 O2 Sat by Pulse Oximetry (%) s/p unwitnessed fall in the bathroom Report received from TISHA Tello re: patient was shoeless, fell in the bathroom and hit the wall, patient denies hitting. Denies changes in LOC. AOX3 no distress, no changes in LOC EENT WNL no adventitious breath sounds full ROM BGM 101, BP 142/91 P101 RR18 P97.3 Fall protocol #1 Patient refuse to go to the ED or CT Scan Continue to monitor for worsening symptoms
[2019-03-05] MEDS: THIAMINE HCL 100 MG TABLET (FP) PO SCH (22:08)
[2019-03-05] MEDS ORDERED: chlordiazePOXIDE HCL 10 MG CAPSULE PO SCH (23:00)
[2019-03-06] MEDS: hydrOXYzine PAMOATE 50 MG CAPSULE (FP) PO PRN (01:49)
[2019-03-06] MEDS ORDERED: METHADONE HCL 5 MG TABLET (FOR DETOX USE ONLY) PO ONE (06:00)
[2019-03-06 09:26] VITALS: BP 147/97; PULSE 110; TEMP 98.5
--- NOTE | 2019-03-06 15:44 | DS ---
[facility] Detox Discharge Summary Admission Date: 03/02/19 Discharge Date: 03/06/19 - History Present History: Alcohol Dependence, Opioid Dependence Additional Comments: 63 years old male admitted on 03/02/19 for alcohol and opiate withdrawal stabilization chart reviewed patient fell unwitnessed refuse treatment patient denies pain denies dizziness steady gait wants to leave the unit and begin 12 step community self help patient informed that he has aftercare appointment at [facility] discuss medication assisted maintenance treatment program - Physical Exam Results Vital Signs: Vital Signs Temperature 98.5 F 03/06/19 08:20 Pulse Rate 110 H 03/06/19 08:20 Respiratory Rate 18 03/06/19 08:20 Blood Pressure 147/97 03/06/19 08:20 O2 Sat by Pulse Oximetry (%) Pertinent Admission Physical Exam Findings: alcohol and opiate withdrawal sx Laboratory Last Values WBC 7.0 K/mm3 (4.0-10.0) 03/04/19 07:50 RBC 4.57 M/mm3 (4.00-5.60) 03/04/19 07:50 Hgb 12.9 GM/dL (11.7-16.9) 03/04/19 07:50 Hct 37.6 % (35.4-49) 03/04/19 07:50 MCV 82.2 fl (80-96) 03/04/19 07:50 MCH 28.2 pg (25.7-33.7) 03/04/19 07:50 MCHC 34.3 g/dl (32.0-35.9) 03/04/19 07:50 RDW 14.7 % (11.9-15.9) 03/04/19 07:50 Plt Count 300 K/MM3 (134-434) 03/04/19 07:50 MPV 8.7 fl (7.5-11.1) 03/04/19 07:50 Absolute Neuts (auto) 4.6 K/mm3 (1.5-8.0) 03/04/19 07:50 Neutrophils % 65.7 % (42.8-82.8) 03/04/19 07:50 Lymphocytes % 21.6 % (8-40) 03/04/19 07:50 Monocytes % 9.8 % (3.8-10.2) 03/04/19 07:50 Eosinophils % 1.8 % (0-4.5) 03/04/19 07:50 Basophils % 1.1 % (0-2.0) 03/04/19 07:50 Nucleated RBC % 0 % (0-0) 03/04/19 07:50 Sodium 137 mmol/L (136-145) 03/03/19 07:45 Potassium 3.7 mmol/L (3.5-5.1) 03/05/19 07:00 Chloride 100 mmol/L (98-107) 03/03/19 07:45 Carbon Dioxide 28 mmol/L (21-32) 03/03/19 07:45 Anion Gap 9 MMOL/L (8-16) 03/03/19 07:45 BUN 9 mg/dL (7-18) 03/03/19 07:45 Creatinine 1.1 mg/dL (0.55-1.3) 03/03/19 07:45 Creat Clearance w eGFR 67.18 (>60) 03/03/19 07:45 POC Glucometer 116 UNITS (80-120) 03/06/19 05:33 Random Glucose 116 mg/dL (74-106) H 03/03/19 07:45 Calcium 9.0 mg/dL (8.5-10.1) 03/03/19 07:45 Total Bilirubin 0.8 mg/dL (0.2-1) 03/03/19 07:45 AST 55 U/L (15-37) H 03/03/19 07:45 ALT 43 U/L (13-61) 03/03/19 07:45 Alkaline Phosphatase 97 U/L (45-117) 03/03/19 07:45 Total Protein 7.2 g/dl (6.4-8.2) 03/03/19 07:45 Albumin 3.3 g/dl (3.4-5.0) L 03/03/19 07:45 Urine Color Yellow 03/02/19 21:37 Urine Appearance Clear 03/02/19 21:37 Urine pH 7.5 (5.0-8.0) D 03/02/19 21:37 Ur Specific [place] 1.020 (1.010-1.035) 03/02/19 21:37 Urine Protein 1+ (NEGATIVE) H 03/02/19 21:37 Urine Glucose (UA) Negative (NEGATIVE) 03/02/19 21:37 Urine Ketones Negative (NEGATIVE) 03/02/19 21:37 Urine Blood Trace (NEGATIVE) 03/02/19 21:37 Urine Nitrite Negative (NEGATIVE) 03/02/19 21:37 Urine Bilirubin Negative (NEGATIVE) 03/02/19 21:37 Urine Urobilinogen 0.2 mg/dL (0.2-1.0) 03/02/19 21:37 Ur Leukocyte Esterase Negative (NEGATIVE) 03/02/19 21:37 Urine WBC (Auto) 7 /hpf (0-5) 03/02/19 21:37 Urine RBC (Auto) 1 /hpf (0-4) 03/02/19 21:37 Urine Casts (Auto) 5 /hpf (0-8) 03/02/19 21:37 U Epithel Cells (Auto) 2.2 /HPF (0-5) 03/02/19 21:37 Urine Bacteria (Auto) 9.5 /hpf (NEGATIVE) 03/02/19 21:37 lab noted - Treatment Hospital Course: Detox Protocol Followed, Detoxed Safely, Responded well, Discharged Condition Good, Rehab Referral Accepted Patient has Accepted a Rehab Referral to: [address] [facility] - Medication Discharge Medications: Ambulatory Orders Buspirone HCl [Buspar -] 30 mg PO DAILY 02/12/19 Hydralazine HCl 50 mg PO TID 02/12/19 Naloxone HCl [Narcan] 4 mg NS PRN PRN #2 spray 02/14/19 - Diagnosis (1) Alcohol dependence with uncomplicated withdrawal Status: Acute (2) Hypertension Status: Chronic Qualifiers: Hypertension type: essential hypertension Qualified Code(s): I10 - Essential (primary) hypertension (3) Opioid dependence with withdrawal Status: Acute (4) Use of cane as ambulatory aid Status: Chronic (5) DM2 (diabetes mellitus, type 2) Status: Chronic Qualifiers: Diabetes mellitus intermodal dispatcher insulin use: without intermodal dispatcher use Diabetes mellitus complication status: without complication Qualified Code(s): E11.9 - Type 2 diabetes mellitus without complications (6) Essential hypertension Status: Chronic (7) Substance induced mood disorder Status: Suspected - AMA Did Patient Leave Against Medical Advice: No
== END 2019-03-06 08:25 | disposition home or self-care (01) | DRG 897 ==
LOC: YASAS 19:38 → Y3N 21:12
PROVIDERS: ADMIT Surgery; ATTEND Surgery
PROC: HZ2ZZZZ Detoxification Services for Substance Abuse Treatment (ICD-10-PCS; principal; 2019-03-02)
DX: F11.23 Opioid dependence with withdrawal (principal); F10.230 Alcohol dependence with withdrawal, uncomplicated; F19.24 Other psychoactive substance dependence with psychoactive substance-induced mood disorder; F41.8 Other specified anxiety disorders; F32.9 Major depressive disorder, single episode, unspecified; I10 Essential (primary) hypertension; E11.9 Type 2 diabetes mellitus without complications; Z79.4 Long term (current) use of insulin
CPT/HCPCS: 36415; 80053; 81003; 82962; 84132; 85025; 85027; J0735